=== PATIENT | female | born 1995 | race Caucasian/White ===

== ENCOUNTER → 2017-09-19 | Outpatient (CLI) | payer OTHER ==
--- NOTE | 2017-09-19 15:26 | MAMMOGRAPHY REPORT ---
ULTRASOUND OF BOTH BREASTS: 09/19/2017 CLINICAL HISTORY: 22-year-old woman began OCPs in June 2017 and approximately 1 week after startin g experienced one episode of unilateral bloody nipple discharge, and then one episode of contralatera l bloody nipple discharge. Amount quantified as multiple drops. No palpable lump, skin changes or f ocal pain. Family history of breast cancer = paternal grandmother and paternal great aunt. COMPARISON: No prior exams were available for comparison. FINDINGS: Targeted ultrasound was performed in the periareolar and subareolar aspect of each breast. Sonographically normal dense glandular tissue is seen without a suspicious solid or cystic mass. No focal duct ectasia or intraductal mass identified. No focal skin thickening or drainable fluid verenice ection. IMPRESSION: ACR BI-RADS CATEGORY 1: NEGATIVE There is no sonographic evidence of malignancy in the breasts or other suspicious abnormality identif ied to explain the single episode of bloody nipple discharge from each breast. Continued clinical fo llow-up and clinical monitoring is therefore recommended and if the symptoms should recur, would raza mmend repeat imaging, cytology of the fluid and/or surgical consultation. These results and recommendations were discussed with the patient at the time of the exam. Katie Montenegro M.D. ay/:09/19/2017 13:51:06 [employer] Liner: Dr. Katie Montenegro, [facility] letter sent: Normal 1/2 BI-RADS Code: ACR BI-RADS Category 1: Negative
== END | disposition home or self-care (01) ==
LOC: C.MAMM 13:22
PROVIDERS: ATTEND Obstetrics & Gynecology
DX: N64.52 Nipple discharge (principal)